=== PATIENT | female | born 1955 | race Caucasian/White ===

== ENCOUNTER 2020-11-01 11:28 | Observation (INO) | payer OTHER ==
[~2020-11-01] VITALS: Ht 160 cm; Wt 107.7 kg
[2020-11-01 11:53] LABS: BASOPHILS % (AUTO) 0.6 % (0-1); EOSINOPHILS # (AUTO) 0.2 X10'3 (0-0.9); EOSINOPHILS % (AUTO) 3.6 % (0-6); HEMATOCRIT 40.7 % (35.0-45.0); HEMOGLOBIN 13.1 g/dl (12.0-16.0); LYMPHOCYTES # (AUTO) 1.4 X10'3 (1.1-4.8); LYMPHOCYTES % (AUTO) 22.8 % (21-51); MEAN CORPUSCULAR HEMOGLOBIN 27.8 PG (27.0-31.0); MEAN CORPUSCULAR HGB CONC 32.2 g/dL (33.0-36.5); MEAN CORPUSCULAR VOLUME 86.6 FL (78-98); MEAN PLATELET VOLUME 7.7 FL (7.4-10.4); MONOCYTES # (AUTO) 0.5 X10'3 (0-0.9); MONOCYTES % (AUTO) 8.4 % (2-12); NEUTROPHILS # (AUTO) 3.9 X10'3 (1.8-7.7); NEUTROPHILS % (AUTO) 64.6 % (42-75); PLATELET COUNT 152 X10'3 (140-440); RED CELL DISTRIBUTION WIDTH 14.3 % (11.5-14.5)
[2020-11-01 12:11] LABS: ALANINE AMINOTRANSFERASE 19 U/L (12-78); ALBUMIN 3.5 G/DL (3.4-5.0); ALBUMIN/GLOBULIN RATIO 0.9 (1.1-1.5); ALKALINE PHOSPHATASE 107 IU/L (46-116); ANION GAP 5 (8-16); ASPARTATE AMINO TRANSFERASE 16 U/L (10-37); BILIRUBIN,TOTAL 0.8 MG/DL (0.1-1.0); BLOOD UREA NITROGEN 10 MG/DL (7-18); BUN/CREATININE RATIO 14.3 (6.6-38.0); CHLORIDE 111 MMOL/L (99-107); GLUCOSE 131 MG/DL (70-104); POTASSIUM 3.7 MMOL/L (3.5-5.1); SODIUM 143 MMOL/L (135-145); TOTAL PROTEIN 7.2 G/DL (6.4-8.2); eGFR 85 ML/MIN
[2020-11-01] MEDS ORDERED: enoxaparin 100mg/ml syringe SUBCUT ONE (12:25)
[2020-11-01] MEDS ORDERED: magnesium 4gm in 100ml NS 100 ML IV PRN (13:20)
[2020-11-01] MEDS ORDERED: acetaminophen 325mg tablet PO PRN (13:20)
[2020-11-01] MEDS ORDERED: mag hydrox/Alum hydrox/simeth 30ml oral suspension PO PRN (13:20)
[2020-11-01] MEDS ORDERED: magnesium hydroxide 30ml (MOM) UD suspension PO PRN (13:20)
[2020-11-01] MEDS ORDERED: ondansetron/PF 4mg/2ml inj IV PRN (13:20)
[2020-11-01] MEDS ORDERED: potassium Cl 20 mEq SR tablet PO PRN ×2 (13:20)
[2020-11-01] MEDS ORDERED: magnesium 2GM in 50ml NS 50 ML IV PRN (13:20)
[2020-11-01] MEDS ORDERED: potassium Cl 40MEQ/1/2NS 520ml 520 ML IV PRN ×2 (13:20)
[2020-11-01] MEDS ORDERED: NO HOME MEDS (13:28)
[2020-11-01] MEDS ORDERED: iohexol 350MG/ML 100ml bottle IV ONE (14:37)
[2020-11-01] MEDS: normal saline 1000ml 1,000 ML IV SCH (14:50)
--- NOTE | 2020-11-01 17:42 | NUR ---
Lab at bedside to draw 3rd troponin
--- NOTE | 2020-11-01 17:55 | NUR ---
Patient in room ED 8. I have received report from Keri RN and had the opportunity to ask questions and assume patient care.
[2020-11-01] MEDS ORDERED: regadenoson 0.4mg/5ml syringe IV PRN (18:30)
[2020-11-01] MEDS ORDERED: metoprolol tartrate 1mg/ml inj IV PRN (18:30)
[2020-11-01] MEDS ORDERED: nitroGLYCERIN 0.4mg SUBLingual tab SL PRN (18:30)
[2020-11-01] MEDS ORDERED: aminophylline 250mg/10ml inj. IV PRN (18:30)
[2020-11-01 18:45] VITALS: BP 148/68
[2020-11-01] MEDS: K and/or MAG REPLACEMENT MC SCH (20:00)
[2020-11-01 22:00] VITALS: BP 123/59
[2020-11-02] VITALS (14 sets, daily range): BP systolic 139–177; BP diastolic 70–93
[2020-11-02] MEDS: normal saline 1000ml 1,000 ML IV SCH ×2 (03:57→09:20)
[2020-11-02 06:10] LABS: BASOPHILS % (AUTO) 0.4 % (0-1); EOSINOPHILS # (AUTO) 0.2 X10'3 (0-0.9); EOSINOPHILS % (AUTO) 4.1 % (0-6); HEMATOCRIT 35.9 % (35.0-45.0); HEMOGLOBIN 11.7 g/dl (12.0-16.0); LYMPHOCYTES # (AUTO) 1.4 X10'3 (1.1-4.8); LYMPHOCYTES % (AUTO) 29.3 % (21-51); MEAN CORPUSCULAR HEMOGLOBIN 28.3 PG (27.0-31.0); MEAN CORPUSCULAR HGB CONC 32.4 g/dL (33.0-36.5); MEAN CORPUSCULAR VOLUME 87.2 FL (78-98); MONOCYTES # (AUTO) 0.5 X10'3 (0-0.9); MONOCYTES % (AUTO) 10.4 % (2-12); NEUTROPHILS # (AUTO) 2.6 X10'3 (1.8-7.7); NEUTROPHILS % (AUTO) 55.8 % (42-75); PLATELET COUNT 145 X10'3 (140-440); RED BLOOD COUNT 4.12 X10'6 (4.20-5.60); RED CELL DISTRIBUTION WIDTH 14.5 % (11.5-14.5); WHITE BLOOD COUNT 4.7 X10'3 (4.5-11.0)
[2020-11-02 06:21] LABS: ALANINE AMINOTRANSFERASE 15 U/L (12-78); ALBUMIN/GLOBULIN RATIO 0.9 (1.1-1.5); ALKALINE PHOSPHATASE 101 IU/L (46-116); ANION GAP 6 (8-16); ASPARTATE AMINO TRANSFERASE 15 U/L (10-37); BILIRUBIN,TOTAL 0.5 MG/DL (0.1-1.0); BLOOD UREA NITROGEN 11 MG/DL (7-18); BUN/CREATININE RATIO 15.7 (6.6-38.0); CALCIUM 8.4 MG/DL (8.5-10.1); CHLORIDE 109 MMOL/L (99-107); CHOL/HDL RATIO 5.9 (0.00-4.99); CHOLESTEROL 136 MG/DL (0-200); GLUCOSE 101 MG/DL (70-104); HDL CHOLESTEROL 23 MG/DL (35-60); LDL CHOLESTEROL 94 MG/DL (50-100); MAGNESIUM 2.1 MG/DL (1.5-2.4); POTASSIUM 3.9 MMOL/L (3.5-5.1); SODIUM 141 MMOL/L (135-145); TOTAL CARBON DIOXIDE 25.6 MMOL/L (24-32); TOTAL PROTEIN 6.2 G/DL (6.4-8.2); TRIGLYCERIDES 147 MG/DL (20-135); eGFR 85 ML/MIN
--- NOTE | 2020-11-02 06:45 | NUR ---
Patient in room ORTHO 4016. I have received report from JARVIS BESS and had the opportunity to ask questions and assume patient care.
[2020-11-02] MEDS: K and/or MAG REPLACEMENT MC SCH (08:00)
--- NOTE | 2020-11-02 11:00 | NUR ---
unable to see patient this am. patient having stress test done. woc will follow up with patient.
--- NOTE | 2020-11-02 17:45 | NUR ---
PATIENT STABLE AND APPROPRIATE FOR DISCHARGE, IV TAKEN OFF, TELE REMOVED, EDUCATION GIVEN, ALL BELONGINGS SENT WITH PATIENT, PATIENT TAKEN TO LOBBY IN WHEELCHAIR TO AND AWAITING CAR WHERE WILL TAKE PATIENT HOME
[2020-11-02] MEDS ORDERED: enoxaparin 40mg/0.4ml syringe SQ SCH (20:00)
== END 2020-11-02 17:58 | disposition home or self-care (01) ==
LOC: ER 11:29 → ED HOLD 13:17 → ORTHO 4S 17:45
PROVIDERS: ADMIT Family Medicine; ATTEND Family Medicine
DX: R07.89 Other chest pain (principal); R42 Dizziness and giddiness; E04.1 Nontoxic single thyroid nodule; I51.7 Cardiomegaly; L98.8 Other specified disorders of the skin and subcutaneous tissue; Z87.891 Personal history of nicotine dependence; Z90.722 Acquired absence of ovaries, bilateral; Z90.710 Acquired absence of both cervix and uterus
CPT/HCPCS: 36415; 70496; 70498; 71045; 76536; 78452; 80053; 80061; 83735; 83880; 84443; 84484; 85025; 87081; 93005; 93017; 93306; 96360; 96361; 96372; 97161; 97530; 99285; A9500; G0378; J2785; J7030; Q9967; J1650

== ENCOUNTER 2021-04-05 13:01 | Emergency (ER) | payer OTHER ==
[~2021-04-05] VITALS: Ht 157.5 cm; Wt 92.3 kg
[~2021-04-05 13:01] MED LIST: NO HOME MEDS
[2021-04-05 16:10] LABS: BASOPHILS % (AUTO) 0.6 % (0-1); EOSINOPHILS # (AUTO) 0.3 X10'3 (0-0.9); EOSINOPHILS % (AUTO) 4.7 % (0-6); HEMATOCRIT 40.2 % (35.0-45.0); HEMOGLOBIN 13.1 g/dl (12.0-16.0); LYMPHOCYTES # (AUTO) 0.8 X10'3 (1.1-4.8); LYMPHOCYTES % (AUTO) 14.9 % (21-51); MEAN CORPUSCULAR HEMOGLOBIN 27.4 PG (27.0-31.0); MEAN CORPUSCULAR HGB CONC 32.6 g/dL (33.0-36.5); MEAN CORPUSCULAR VOLUME 83.8 FL (78-98); MONOCYTES # (AUTO) 0.5 X10'3 (0-0.9); NEUTROPHILS # (AUTO) 3.9 X10'3 (1.8-7.7); NEUTROPHILS % (AUTO) 70.8 % (42-75); PLATELET COUNT 186 X10'3 (140-440); RED CELL DISTRIBUTION WIDTH 15.5 % (11.5-14.5); WHITE BLOOD COUNT 5.5 X10'3 (4.5-11.0)
[2021-04-05 16:20] LABS: D-DIMER 0.97 MG/L FEU (0-0.50)
[2021-04-05 16:25] LABS: ALANINE AMINOTRANSFERASE 19 U/L (12-78); ALBUMIN 3.4 G/DL (3.4-5.0); ALKALINE PHOSPHATASE 98 IU/L (46-116); ANION GAP 12 (8-16); ASPARTATE AMINO TRANSFERASE 20 U/L (10-37); BILIRUBIN,TOTAL 1.1 MG/DL (0.1-1.0); BLOOD UREA NITROGEN 6 MG/DL (7-18); BUN/CREATININE RATIO 8.6 (6.6-38.0); CHLORIDE 105 MMOL/L (99-107); GLUCOSE 85 MG/DL (70-104); POTASSIUM 3.9 MMOL/L (3.5-5.1); SODIUM 141 MMOL/L (135-145); TOTAL CARBON DIOXIDE 24.3 MMOL/L (24-32); TOTAL PROTEIN 6.9 G/DL (6.4-8.2); eGFR 84 ML/MIN
[2021-04-05 16:36] LABS: C-REACTIVE PROTEIN 2.02 MG/DL (0.0-0.5); MAGNESIUM 2.1 MG/DL (1.5-2.4)
[2021-04-05] MEDS ORDERED: iohexol 350MG/ML 100ml bottle IV ONE (16:42)
[2021-04-05 18:00] LABS: LACTATE DEHYDROGENASE 207 U/L (81-234)
[2021-04-06 00:21] VITALS: BP 157/82
== END 2021-04-06 07:06 | disposition home or self-care (01) ==
LOC: ER 13:02
DX: C85.90 Non-Hodgkin lymphoma, unspecified, unspecified site (principal); Z20.822 Contact with and (suspected) exposure to COVID-19; R22.1 Localized swelling, mass and lump, neck; R13.10 Dysphagia, unspecified; R53.83 Other fatigue; R07.89 Other chest pain
CPT/HCPCS: 36415; 70496; 70498; 71045; 71275; 80053; 83605; 83615; 83735; 84145; 84439; 84443; 85025; 85379; 86140; 87040; 87635; 99291; 99292; C9803; Q9967

== ENCOUNTER 2021-05-06 11:30 | Emergency (ER) | payer OTHER ==
[~2021-05-06] VITALS: Ht 157.5 cm; Wt 86.4 kg
[2021-05-06] MEDS ORDERED: normal saline 1000ML IV soln IVB ONE (12:00)
[2021-05-06 13:40] LABS: BASOPHILS % (AUTO) 0.6 % (0-1); EOSINOPHILS % (AUTO) 1.8 % (0-6); HEMATOCRIT 36.3 % (35.0-45.0); HEMOGLOBIN 12.1 g/dl (12.0-16.0); LYMPHOCYTES # (AUTO) 0.3 X10'3 (1.1-4.8); LYMPHOCYTES % (AUTO) 12.2 % (21-51); MEAN CORPUSCULAR HEMOGLOBIN 27.5 PG (27.0-31.0); MEAN CORPUSCULAR HGB CONC 33.4 g/dL (33.0-36.5); MEAN CORPUSCULAR VOLUME 82.4 FL (78-98); MEAN PLATELET VOLUME 7.2 FL (7.4-10.4); MONOCYTES % (AUTO) 0.5 % (2-12); NEUTROPHILS % (AUTO) 84.9 % (42-75); PLATELET COUNT 174 X10'3 (140-440); RED CELL DISTRIBUTION WIDTH 15.8 % (11.5-14.5); WHITE BLOOD COUNT 2.4 X10'3 (4.5-11.0)
[2021-05-06 13:56] LABS: ALANINE AMINOTRANSFERASE 85 U/L (12-78); ALBUMIN 3.1 G/DL (3.4-5.0); ALKALINE PHOSPHATASE 58 IU/L (46-116); ANION GAP 10 (8-16); ASPARTATE AMINO TRANSFERASE 17 U/L (10-37); BILIRUBIN,TOTAL 1.2 MG/DL (0.1-1.0); BLOOD UREA NITROGEN 10 MG/DL (7-18); BUN/CREATININE RATIO 15.2 (6.6-38.0); CALCIUM 8.3 MG/DL (8.5-10.1); CHLORIDE 104 MMOL/L (99-107); CREATININE 0.66 MG/DL (0.40-0.90); GLUCOSE 97 MG/DL (70-104); POTASSIUM 3.9 MMOL/L (3.5-5.1); SODIUM 141 MMOL/L (135-145); TOTAL CARBON DIOXIDE 27.4 MMOL/L (24-32); TOTAL PROTEIN 6.2 G/DL (6.4-8.2); eGFR 90 ML/MIN
[2021-05-06 15:00] LABS: TOTAL CELLS COUNTED 100
[2021-05-06 15:01] LABS: ANISOCYTOSIS FEW; PLATELET ESTIMATE NORMAL
[2021-05-06 15:28] VITALS: BP 131/66
== END 2021-05-06 15:26 | disposition home or self-care (01) ==
LOC: ER 11:30
DX: C85.90 Non-Hodgkin lymphoma, unspecified, unspecified site (principal); R42 Dizziness and giddiness; E86.0 Dehydration
CPT/HCPCS: 80053; 85007; 85025; 96360; 96361; 99283; J7030

== ENCOUNTER 2023-12-17 18:18 | Emergency (ER) | payer OTHER ==
[~2023-12-17] VITALS: Ht 157.5 cm; Wt 105.9 kg
[2023-12-17 18:42] VITALS: TEMP 97.6
[2023-12-17 19:26] VITALS: BP 179/92; PULSE 79; O2SAT 99
[2023-12-17 23:59] VITALS: RESP 18
[2023-12-17] MEDS: oxyCODONE/APAP 5-325mg tablet PO ONE (23:59)
== END 2023-12-18 00:11 | disposition home or self-care (01) ==
LOC: ER 18:19
DX: S80.01XA Contusion of right knee, initial encounter (principal); S60.212A Contusion of left wrist, initial encounter; S05.12XA Contusion of eyeball and orbital tissues, left eye, initial encounter; S09.90XA Unspecified injury of head, initial encounter; M54.2 Cervicalgia; W19.XXXA Unspecified fall, initial encounter; Y93.89 Activity, other specified; Y92.89 Other specified places as the place of occurrence of the external cause; Y99.8 Other external cause status
CPT/HCPCS: 70450; 70486; 72125; 72128; 72131; 73110; 73564; 99284